=== PATIENT | female | born 1995 | race African-American/Black ===

== ENCOUNTER 2022-04-25 00:56 | Emergency (ER) | payer MEDICAID ==
[~2022-04-25] VITALS: Ht 172.7 cm; Wt 85.4 kg
[2022-04-25 01:05] VITALS: BP 130/83
[2022-04-25] MEDS ORDERED: KETOROLAC TROMETH 60MG/2ML VIAL IM ONE (04:45)
== END 2022-04-25 04:55 | disposition home or self-care (01) ==
LOC: ER 01:07
DX: M79.672 Pain in left foot (principal)
CPT/HCPCS: 73610; 73630; 96372; 99284; J1885